=== PATIENT | male | born 1945 | race Caucasian/White ===

== ENCOUNTER → 2017-11-08 06:07 | Outpatient (CLI) | payer MEDICARE, BC, SELFPAY ==
[2017-11-08 09:50] LABS: Abs Immature Grans 0.02 k/cumm (0.0-0.09); Absolute Basophil Count 0.02 k/cumm (0.0-0.2); Absolute Eosinophil Count 0.35 k/cumm (0.0-0.7); Absolute Monocyte Count 0.76 k/cumm (0.11-0.7); Basophils % 0.3; Eosinophils % 5.7; HCT 42.7 % (40.0-50.0); HGB 14.9 g/dL (13.5-17.5); Immature Grans % 0.3; Lymphocytes % 21.1; Mean Corp. HGB Concentration 34.9 g/dL (32.0-36.0); Mean Corpuscular Hemoglobin 31.3 pg (27.0-33.0); Mean Corpuscular Volume 89.7 fL (80-95); Mean Platelet Volume 11.3 fL (8.0-11.0); Monocytes % 12.4; Neutrophils % 60.2; Platelet Count 169 x1000/uL (130-400); RBC 4.76 m/cumm (4.50-6.00); RBC Distribution Width 13.2 % (11.8-14.1); White Blood Cell Count 6.15 k/cumm (4.4-10.8)
[2017-11-08 10:02] LABS: Hemoglobin A1C 7.7 % (4.5-6.2)
[2017-11-08 10:06] LABS: Cholesterol 161 mg/dL (50-200); HDL Cholesterol 36 mg/dL (40-60); LDL CHOLESTEROL 102 mg/dL (<100); Triglyceride 128 mg/dL (30-150)
== END ==
PROVIDERS: PCP Internal Medicine; Visit Provider Internal Medicine
DX: D64.9 Anemia, unspecified (principal); R73.09 Other abnormal glucose; E78.5 Hyperlipidemia, unspecified; I10 Essential (primary) hypertension
CPT/HCPCS: 36415; 80061; 83721; 83036; 85025

== ENCOUNTER 2018-04-05 11:54 | Outpatient (CLI) | payer MEDICARE, BC, SELFPAY ==
[2018-04-05 13:32] LABS: Hemoglobin A1C 8.9 % (4.5-6.2)
== END 2018-04-05 12:14 ==
PROVIDERS: PCP Internal Medicine; Visit Provider Internal Medicine
DX: E11.9 Type 2 diabetes mellitus without complications (principal)
CPT/HCPCS: 36415; 83036

== ENCOUNTER 2018-07-14 09:33 | Outpatient (CLI) | payer MEDICARE, BC, SELFPAY ==
[2018-07-14 13:02] LABS: Hemoglobin A1C 6.6 % (4.5-6.2)
== END 2018-07-14 09:53 ==
PROVIDERS: PCP Internal Medicine; Visit Provider Internal Medicine
DX: E11.9 Type 2 diabetes mellitus without complications (principal); R35.1 Nocturia; Z12.5 Encounter for screening for malignant neoplasm of prostate
CPT/HCPCS: 36415; 84153; 83036

== ENCOUNTER 2019-04-06 16:01 | Outpatient (CLI) | payer MEDICARE, BC, SELFPAY ==
[2019-04-06 17:00] LABS: Abs Immature Grans 0.02 k/cumm (0.0-0.09); Absolute Basophil Count 0.02 k/cumm (0.0-0.2); Absolute Eosinophil Count 0.23 k/cumm (0.0-0.7); Absolute Lymphocyte Count 1.33 k/cumm (1.2-3.4); Absolute Monocyte Count 0.81 k/cumm (0.11-0.7); Absolute Neutrophil Count 4.63 k/cumm (1.2-6.7); Basophils % 0.3; Eosinophils % 3.3; Immature Grans % 0.3 %; Lymphocytes % 18.9; Mean Corp. HGB Concentration 34.1 g/dL (32.0-36.0); Mean Corpuscular Hemoglobin 30.5 pg (27.0-33.0); Mean Corpuscular Volume 89.4 fL (80-95); Mean Platelet Volume 12.4 fL (8.0-11.0); Monocytes % 11.5; Neutrophils % 65.7; Platelet Count 165 x1000/uL (130-400); RBC 4.92 m/cumm (4.50-6.00); RBC Distribution Width 13.4 % (11.8-14.1); White Blood Cell Count 7.04 k/cumm (4.4-10.8)
[2019-04-06 17:05] LABS: ALT 35 U/L (16-63); AST 23 U/L (15-37); Albumin 4.4 g/dL (3.4-5.0); Alkaline Phosphatase 76 U/L (46-116); Anion Gap 7.6 mmol/L (3-11); BUN 21 mg/dL (7-18); Bilirubin, Total 0.7 mg/dL (0.2-1.0); CO2 33.4 mmol/L (21.0-32.0); CREATININE 1.04 mg/dL (0.70-1.30); Calcium 9.4 mg/dL (8.5-10.1); Chloride 103 mmol/L (98-107); Glucose 101 mg/dL (74-106); Potassium 4.4 mmol/L (3.5-5.1); Sodium 144 mmol/L (136-145); Total Protein 7.3 g/dL (6.4-8.2)
== END 2019-04-06 16:21 ==
PROVIDERS: PCP Internal Medicine; Visit Provider Internal Medicine
DX: E11.65 Type 2 diabetes mellitus with hyperglycemia (principal); I10 Essential (primary) hypertension; R50.9 Fever, unspecified
CPT/HCPCS: 36415; 80053; 83036; 85025

== ENCOUNTER 2020-05-21 02:54 | Outpatient (CLI) | payer MEDICARE, BC, SELFPAY ==
[2020-05-21 12:38] LABS: Calculated LDL 118 mg/dL (<100); Cholesterol 207 mg/dL (<200); HDL Cholesterol 37 mg/dL (40-60); Potassium 4.4 mmol/L (3.5-5.1); Triglyceride 260 mg/dL (<150)
[2020-05-21 12:53] LABS: Hemoglobin A1C 7.1 % (<5.7)
== END 2020-05-21 02:55 | disposition home or self-care (01) ==
LOC: LOS 02:54
PROVIDERS: PCP Nurse Practitioner; Visit Provider Nurse Practitioner
DX: E11.65 Type 2 diabetes mellitus with hyperglycemia (principal); I10 Essential (primary) hypertension
CPT/HCPCS: 36415; 80061; 82565; 83036; 84132

== ENCOUNTER 2021-05-22 01:57 | Outpatient (CLI) | payer MEDICARE, BC, SELFPAY | END 2021-05-22 01:58 | disposition home or self-care (01) | LOC: LBO 01:57 | PROVIDERS: PCP Nurse Practitioner; Visit Provider Nurse Practitioner ==

== ENCOUNTER 2021-12-25 03:28 | Outpatient (CLI) | payer MEDICARE, BC, SELFPAY ==
[2021-12-25 14:27] LABS: Hemoglobin A1C 9.5 % (<5.7)
[2021-12-25 14:45] LABS: BUN 21 mg/dL (7-18); CREATININE 1.2 mg/dL (0.70-1.30); Calcium 9.2 mg/dL (8.5-10.1); Calculated LDL 79 mg/dL (<100); Chloride 101 mmol/L (98-107); Cholesterol 145 mg/dL (<200); Estimated GFR 63.46 (mL/min/1.73m2); Glucose 156 mg/dL (74-106); HDL Cholesterol 45 mg/dL (40-60); Potassium 3.6 mmol/L (3.5-5.1); Sodium 139 mmol/L (136-145); Triglyceride 109 mg/dL (<150)
== END 2021-12-25 03:29 | disposition home or self-care (01) ==
LOC: LBO 03:28
PROVIDERS: PCP Nurse Practitioner; Visit Provider Nurse Practitioner
DX: I10 Essential (primary) hypertension (principal); E11.9 Type 2 diabetes mellitus without complications; E78.5 Hyperlipidemia, unspecified
CPT/HCPCS: 36415; 80048; 80061; 83036

== ENCOUNTER 2022-06-02 00:46 | Outpatient (CLI) | payer MEDICARE, BC, SELFPAY ==
--- NOTE | 2022-06-02 07:34 | DI.NM_ITS ---
APPROVED REPORT Day 1 2
== END 2022-06-02 01:06 ==
PROVIDERS: PCP Nurse Practitioner Family; Visit Provider Nurse Practitioner Family
DX: I10 Essential (primary) hypertension (principal)
CPT/HCPCS: 93016; 93018

== ENCOUNTER 2022-06-05 01:47 | Outpatient (CLI) | payer MEDICARE, BC, SELFPAY ==
--- NOTE | 2022-06-05 11:00 | DI.NM_ITS ---
APPROVED REPORT Exam: Pharmacologic Patient Location: Out-Patient Room/Bed: Stress Nurse: Sharon Avila RN Ordering Provider:ELPIDIO URIBE, Contact Number: [phone] BMI: 28.58 Baseline Rhythm: Sinus Rhythm w/ RBBB and LPFB, PVCs Indications: CDL, HTN, atherosclerosis, h/o bypass Medical History Medical History: Hypertension, hyperlipidemia, diabetes, ventral hernia, white coat syndrome, smoker (former), CVD Cardiac Medications: Metoprolol succinate, metformin, enalapril maleate, enalapril HTZ, atorvastatin, aspirin Allergies: NKA Cardiac Risk Factors: Hypertension, hyperlipidemia, diabetes, smoker (former), CVD, family hx Previous Cardiac Procedures: CABG x3 2006 Pretest Chest Pain Characteristics: None Exercise History: Indeterminate Physical Disabilities: None Lung Sounds: Clear to auscultation Heart Sounds: Regular Stress Test Details Test: Pharmacologic stress testing performed using 0.4 mg of regadenoson per 5 mL given IV over 10 s econds. Reason for pharmacologic stress test: Hypertensive at rest. Nuclear Acquisition: Stress Tc-99m/Stress Tc-99m 2 days Rest Isotope: Tc-99m Sestamibi. Dose: 10 Date: 06/02/2022 Injection Time: 0900 Stress Isotope: Tc-99m Sestamibi. Dose: 30.6 Date: 06/05/2022 Injection Time: 1115 HR Resting HR Supine: 52 bpm Max Heart Rate (APMHR): 145.393901 bpm Target HR (85% APMHR): 123.690488 bpm Max HR Achieved: 75 bpm % of APMHR: 51.72 Recovery HR: 65 bpm BP Resting BP Supine: 202/80 mmHg Max BP: 202/80 mmHg Recovery BP: 148/70 mmHg Comment: Hypertensive at baseline ECG Resting ECG: Sinus Rhythm, RBBB and LPFB Ectopy: Occasional PVCs Stress ECG: Sinus Rhythm, RBBB and LPFB ST Change: Nondiagnostic low heart rate Arrhythmia: Occasional PVCs Recovery ECG: Sinus Rhythm, RBBB and LPFB Recovery ST Change: Nondiagnostic low heart rate Recovery Arrhythmia: Occasional PVCs Clinical Rate Pressure Product: [id number] Stress ECG Conclusion 1. Resting electrocardiogram showed right bundle sean block, right axis deviation 2. Patient was hypertensive at baseline 3. Patient underwent testing using pharmacologic stress with regadenoson 4. Peak heart rate achieved was 52% of maximal for age 5. The electrocardiographic portion of the test was nondiagnostic due to inadequate heart rate 6. See MPI report Stress Test Summary STAGE HR BP SpO2 Symptoms NOTES Supine 52 202/80 96% 1 min post Lexiscan injection 59 186/74 97% Mild SOB SOB resovled quickly 3 min post Lexiscan injection 67 160/68 96% 6 min post Lexiscan injection 65 148/70 96% Due to resting hypertensive blood pressure consulted w/ MD Reed and recommended we proceed with pharm acologic stress test. Pt tolerated Regadenoson administration well. MPI Conclusion Technically suboptimal study EF is 39% with global hypokinesis Cannot exclude some degree of anterior ischemia Radiologist Interpretation Radiologist agrees with Accounts Receivable Assistant's Interpretation. Radiologist Interpretation by: Arabella Card MD Interpretation Date/Time: 06/10/2022 16:27:33
[2022-06-05] MEDS: Regadenoson 0.4 MG/5 ML SYR IVP (11:32)
== END 2022-06-05 02:07 ==
LOC: DI 01:47
PROVIDERS: PCP Nurse Practitioner Family; Visit Provider Nurse Practitioner Family
DX: I25.10 Atherosclerotic heart disease of native coronary artery without angina pectoris (principal)
CPT/HCPCS: 78452; 93016; 93018; 93017; J2785

== ENCOUNTER 2022-06-09 02:01 | Outpatient (CLI) | payer MEDICARE, BC, SELFPAY ==
--- NOTE | 2022-06-09 08:00 | DI.US_ITS ---
APPROVED REPORT EXAM: Comprehensive 2D, Doppler, and color-flow Echocardiogram Other Information Study Quality: Adequate Conclusion Normal left ventricular wall thickness and chamber size. Estimated ejection fraction is 50 to 55%. There are no segmental wall motion abnormalities Normal right ventricular size and systolic function Both atria are normal in size There is no structural or hemodynamically significant valvular disease Wall motion Left Ventricle The left ventricle is normal size. The overall left ventricular systolic function appears borderline There is normal left ventricular wall thickness. There is normal LV segmental wall motion. There is n o ventricular septal defect visualized. LVEF is 50-55%. Right Ventricle The right ventricle is normal size. The right ventricular systolic function is normal. Atria The left atrium size is normal. The right atrium size is normal. The interatrial septum is intact wit h no evidence for an atrial septal defect. Aortic Valve The aortic valve is normal in structure. Aortic valve is trileaflet. There is no aortic valvular sten osis. No aortic regurgitation is present. Mitral Valve The mitral valve is normal in structure. No evidence of mitral valve stenosis. Mild mitral regurgita tion. Tricuspid Valve The tricuspid valve is normal in structure. There is no tricuspid valve stenosis. Trace tricuspid reg urgitation. Unable to assess PA pressure. Pulmonic Valve The pulmonary valve is normal in structure. There is no pulmonic valvular stenosis. Trace to mild pul rita regurgitation. Great Vessels The aortic root is normal in size. Ascending aorta is not well visualized. Aortic arch is not well vi sualized. IVC is normal in size and collapses >50% with inspiration. Pericardium There is no pericardial effusion. 2D Dimensions IVSD d PLAX 1.20 cm M: 0.6-1.2 LV Vol A2C d MOD 148.3 mL LVPW d PLAX 1.25 cm M: 0.6 - 1.2 LV Vol A4C d MOD 128.4 mL LVID d PLAX 4.75 cm M: 4.2 - 5.8 LA vol/ BSA A2C s A-L 37.3 mL/m2 LVDs 3.45 cm M: 2.5 - 4.0 LA vol/ BSA A4C s A-L 27.6 mL/m2 Ao Root d 2.97 cm M: 3.1 - 3.7 LA Vol/ BSA Biplane s A-L 33.0 mL/m2 RA Area A4C 14.11 cm2 LA Area A4C s MOD 18.76 cm2 RA Vol/ BSA A4C s A-L 20.6 mL/m2 LA Area A2C s MOD 21.16 cm2 LV EF Teichholz 52.7 % LV EF A4C MOD 49.2 % LVEF (Gray's) 52.85 % M: 52 - 72 LV EF A2C MOD 55.3 % LV Volume 105.94 mL M: 62 - 150 LV EF Biplane MOD 52.8 % LV Volume Index 53.23 mL/m2 M: 34 - 74 SV 74.53 mL LV Vol Biplane MOD 141.0 mL SV Index 37.44 mL/m2 FS 27.05 % M-Mode TAPSE 1.79 cm (M/F) >1.7 LV Diastology MV E' medial 0.035 (>0.07 m/s) E/A Ratio 0.6 LV E/e MED 11.00 (<14) MV E Vmax 0.39 (0.4-1.3 m/s) MV E' lateral 0.051 (>0.1 m/s) MV A Vmax 0.60 (0.4-1.3 m/s) LV E/e LAT 7.60 (<14) MV E/A Ratio 0.64 MV E/E' medial 11.03 MV E/E' lateral 7.62 Aortic Valve LVOT Area 3.42 cm2 AoV Area Vmax 3.11 cm2 LVOT Vmax 1.07 m/s AoV Area/ BSA (Vmax) 1.56 cm2/m2 LVOT Mean Segundo. 0.67 m/s LELIA Mean Segundo. 2.97 cm2 LVOT Peak Grad 4.6 mmHg LELIA Mean Segundo. Index 1.49 cm2/m2 LVOT Mean Grad 2.1 mmHg LVOT VTI 0.234 m LVOT Diam s 2.05 cm AoV Vmax 1.18 m/s Velocity Ratio 0.91 AoV Mean Segundo. 0.77 m/s AoV Peak Grad 5.5 mmHg LVOT SV 80.22 mL AoV Mean Grad 2.8 mmHg AoV VTI 0.248 m AoV Area VTI 3.23 cm2 AoV Area/ BSA (VTI) 1.62 cm/m2 Mitral Valve MV DT 464 (160-240 msec) MV PHT 135 msec MV Area PHT 1.63 cm2 MV VTI 0.274 m MV Area VTI 2.93 (4.0-6.0 cm2) Pulmonary Valve PV Vmax 1.04 (0.5-1.5 m/s) RVOT Peak Gr. 1.36 mmHg PV Peak Grad 4.4 mmHg RVOT Mean Gr. 0.65 mmHg PV Mean Grad 2.2 mmHg RVOT VTI 0.137 m PV VTI 0.210 m RVOT Vmax 0.58 m/s
== END 2022-06-09 02:21 ==
LOC: DI 02:01
PROVIDERS: PCP Nurse Practitioner Family; Visit Provider Nurse Practitioner Family
DX: I10 Essential (primary) hypertension (principal); I25.10 Atherosclerotic heart disease of native coronary artery without angina pectoris; Z95.1 Presence of aortocoronary bypass graft
CPT/HCPCS: 93306

== ENCOUNTER 2022-08-20 11:21 | Outpatient (CLI) | payer MEDICARE, BC, SELFPAY ==
[2022-08-20 09:21] LABS: Hemoglobin A1C 7.4 % (<5.7)
== END 2022-08-20 11:22 | disposition home or self-care (01) ==
PROVIDERS: PCP Nurse Practitioner Family; Visit Provider Nurse Practitioner Family
DX: E11.9 Type 2 diabetes mellitus without complications (principal)
CPT/HCPCS: 36415; 83036

== ENCOUNTER 2023-05-25 12:18 | Outpatient (CLI) | payer MEDICARE, BC, SELFPAY ==
[2023-05-25 11:33] LABS: HCT 40.9 % (40.0-50.0); HGB 14.1 g/dL (13.5-17.5); MCH 30.9 pg (27.0-33.0); MCHC 34.5 % (32.0-36.0); MCV 90 fL (80-95); MPV 11.3 fL (8.0-11.0); Platelet Count 174 10^3/uL (130-400); RBC 4.57 10^6/uL (4.36-5.78); RDW 12.9 % (11.8-14.1); RDW-SD 42.3 fL; WBC 7.62 10^3/uL (4.4-10.8)
[2023-05-25 12:05] LABS: ALT 31 U/L (16-63); AST 22 U/L (15-37); Albumin 4.1 g/dL (3.4-5.0); Alkaline Phosphatase 112 U/L (46-116); Anion Gap 7.9 mmol/L (3-11); BUN 22 mg/dL (7-18); Bilirubin, Total 0.7 mg/dL (0.2-1.0); CO2 32.1 mmol/L (21.0-32.0); CREATININE 1.1 mg/dL (0.70-1.30); Calcium 10.1 mg/dL (8.5-10.1); Calculated LDL 61 mg/dL (<100); Chloride 103 mmol/L (98-107); Cholesterol 116 mg/dL (<200); Estimated GFR 69.57 (mL/min/1.73m2); Glucose 178 mg/dL (74-106); HDL Cholesterol 38 mg/dL (40-60); Potassium 4.7 mmol/L (3.5-5.1); Sodium 143 mmol/L (136-145); Total Protein 7.4 g/dL (6.4-8.2); Triglyceride 85 mg/dL (<150)
== END 2023-05-25 12:19 | disposition home or self-care (01) ==
LOC: LBO 12:19
PROVIDERS: PCP Nurse Practitioner Family; Visit Provider Nurse Practitioner Family
DX: I10 Essential (primary) hypertension (principal); E11.9 Type 2 diabetes mellitus without complications; E78.5 Hyperlipidemia, unspecified
CPT/HCPCS: 36415; 80053; 80061; 85027

== ENCOUNTER 2023-08-25 12:47 | Outpatient (REF) | payer MEDICARE, BC, SELFPAY ==
[2023-08-25 14:20] LABS: COMMENT (LAB VIEW ONLY) 122.86 mg/dL
[2023-08-25 14:27] LABS: Microalb ug/mg Crea 225.4 ug/mg Cr
== END 2023-08-25 12:48 | disposition home or self-care (01) ==
LOC: LBN 12:47
PROVIDERS: PCP Nurse Practitioner Family; Visit Provider Nurse Practitioner Family
DX: E11.9 Type 2 diabetes mellitus without complications (principal)
CPT/HCPCS: 82043; 82570

== ENCOUNTER 2023-11-30 13:29 | Outpatient (CLI) | payer MEDICARE, BC, SELFPAY ==
--- NOTE | 2023-11-30 | DI.RAD_ITS ---
Exam(s) XR FOOT LT COMPLETE EXAM: XR FOOT LT COMPLETE CLINICAL HISTORY: pain in left foot icd-10. TECHNIQUE: 2D digital imaging was performed. COMPARISON: No exams were available for comparison FINDINGS: 3 views No evidence of acute fracture or diastasis of the Lisfranc joint. Great toe metatarsophalangeal join t appears unremarkable. No pes planus. There is soft tissue swelling lateral to the 5th metatarsal head. There does not appear to be an obvious skin ulcer at this level nor radiopaque foreign body an d the cortex of the head of the 5th metatarsal is intact, as is the proximal phalanx. Incidentally noted is a sclerotic benign-appearing non expansile bone lesion in the mid aspect of the great toe metatarsal. Small benign exostosis is noted off the medial aspect of the great toe distal phalanx, this being a common benign finding. Sesamoid bone is noted in the distal tibialis posterio r tendon adjacent to the navicular tuberosity on the medial aspect of the foot. This is not a fractu re fragment. IMPRESSION: Findings as above but no evidence of fracture. No foreign bodies seen. No evidence of osteomyelitis . There is soft tissue swelling lateral to the head of the 5th metatarsal but no osseous findings. DATA REPOSITORY: RADIATION DOSE DELIVERED:
--- NOTE | 2023-11-30 14:24 | DI.VRAD_ITS ---
PROCEDURE INFORMATION: Exam: XR Left Foot Exam date and time: 11/30/2023 1:40 PM Age: 78 years old Clinical indication: Other: Left foot redness and swelloing HX gout , cellulitis TECHNIQUE: Imaging protocol: Radiologic exam of the left foot. Views: 3 or more views. COMPARISON: No relevant prior studies available. FINDINGS: Bones/joints: No fracture or dislocation. No bone erosion. Normal bone mineralization. Soft tissues: Soft tissue swelling along the lateral aspect of the cyst metatarsophalangeal joint. IMPRESSION: No acute bony findings. If clinical symptoms persist recommend followup film in 7-10 days. Dictated and Authenticated by: Celestina Wu MD. Ordering:YUMIKO LUI MD
== END 2023-11-30 13:49 ==
LOC: DI 13:30
PROVIDERS: PCP Nurse Practitioner Family; Visit Provider Nurse Practitioner Family
DX: M79.672 Pain in left foot (principal)
CPT/HCPCS: 73630

== ENCOUNTER 2023-11-30 18:20 | Outpatient (REF) | payer MEDICARE, BC, SELFPAY ==
[2023-11-30 19:00] LABS: Abs Immature Grans 0.03 10^3/uL (0.0-0.06); Absolute Basophil Count 0.04 10^3/uL (0.0-0.2); Absolute Eosinophil Count 0.27 10^3/uL (0.0-0.7); Absolute Lymphocyte Count 1.19 10^3/uL (1.2-3.4); Absolute Monocyte Count 0.91 10^3/uL (0.1-0.8); Absolute Neutrophil Count 7.42 10^3/uL (1.2-6.7); Basophils % 0.4 %; Eosinophils % 2.7 %; HGB 15.1 g/dL (13.5-17.5); Immature Grans % 0.3 %; Lymphocytes % 12.1 %; MCH 30.8 pg (27.0-33.0); MCHC 33.6 % (32.0-36.0); MCV 92 fL (80-95); Monocytes % 9.2 %; Neutrophils % 75.3 %; Platelet Count 192 10^3/uL (130-400); RDW 12.9 % (11.8-14.1); RDW-SD 43.5 fL; WBC 9.86 10^3/uL (4.4-10.8)
[2023-11-30 19:07] LABS: Uric Acid 6.8 mg/dL (3.5-7.2)
== END 2023-11-30 18:21 | disposition home or self-care (01) ==
LOC: LBN 18:20
PROVIDERS: PCP Nurse Practitioner Family; Visit Provider Nurse Practitioner Family
DX: M79.672 Pain in left foot (principal)
CPT/HCPCS: 84550; 85025; 85379

== ENCOUNTER 2023-12-03 09:47 | Outpatient (REF) | payer MEDICARE, BC, SELFPAY ==
[2023-12-03 14:21] LABS: D-Dimer 958 ng/mlFEU (<500)
== END 2023-12-03 09:48 | disposition home or self-care (01) ==
LOC: LBN 09:47
PROVIDERS: PCP Nurse Practitioner Family; Visit Provider Physician Assistant Medical
DX: M79.672 Pain in left foot (principal)
CPT/HCPCS: 85379

== ENCOUNTER 2023-12-04 00:44 | Outpatient (CLI) | payer MEDICARE, BC, SELFPAY ==
--- NOTE | 2023-12-04 | DI.US_ITS ---
Exam(s) US LOWER EXTREMITY VENOUS LT EXAM: US LOWER EXTREMITY VENOUS LT CLINICAL HISTORY: D-DIMER ABOVE REFERENCE RANGE, R79.1 TECHNIQUE: Left lower extremity venous ultrasound performed using grayscale, color-flow, and spectra l Doppler analysis. COMPARISON: No exams were available for comparison FINDINGS: The left common femoral, femoral and popliteal veins demonstrate normal compressibility, augmentation , and color Doppler. The posterior tibial veins are patent. The saphenofemoral junction is unremarka ble. There is no evidence of a Darden cyst. The soft tissues are unremarkable. IMPRESSION: No evidence of a left lower extremity DVT. DATA REPOSITORY:
== END 2023-12-04 01:04 ==
LOC: DI 00:44
PROVIDERS: PCP Nurse Practitioner Family; Visit Provider Physician Assistant Medical
DX: R79.1 Abnormal coagulation profile (principal)
CPT/HCPCS: 93971

== ENCOUNTER 2024-06-14 15:47 | Outpatient (REF) | payer MEDICARE, BC, SELFPAY ==
[2024-06-14 12:58] LABS: HGB 14.8 g/dL (13.5-17.5); MCH 31.4 pg (27.0-33.0); MCHC 35.2 % (32.0-36.0); MCV 89 fL (80-95); MPV 12.5 fL (8.0-11.0); Platelet Count 161 10^3/uL (130-400); RBC 4.71 10^6/uL (4.36-5.78); RDW 12.9 % (11.8-14.1); RDW-SD 42.5 fL
[2024-06-14 13:07] LABS: ALT 40 U/L (16-63); AST 29 U/L (15-37); Alkaline Phosphatase 88 U/L (46-116); Anion Gap 7.1 mmol/L (3-11); BUN 15 mg/dL (7-18); CO2 32.9 mmol/L (21.0-32.0); Calcium 9.6 mg/dL (8.5-10.1); Calculated LDL 85 mg/dL (<100); Chloride 103 mmol/L (98-107); Cholesterol 150 mg/dL (<200); Estimated GFR 77.52 (mL/min/1.73m2); Glucose 204 mg/dL (74-106); HDL Cholesterol 44 mg/dL (>or=40); Potassium 4.3 mmol/L (3.5-5.1); Sodium 143 mmol/L (136-145); Total Protein 6.8 g/dL (6.4-8.2); Triglyceride 109 mg/dL (<150)
== END 2024-06-14 15:48 | disposition home or self-care (01) ==
LOC: LBN 15:47
PROVIDERS: PCP Nurse Practitioner Family; Visit Provider Nurse Practitioner Family
DX: I10 Essential (primary) hypertension (principal); Z00.00 Encounter for general adult medical examination without abnormal findings; E78.5 Hyperlipidemia, unspecified; E11.9 Type 2 diabetes mellitus without complications
CPT/HCPCS: 80053; 80061; 85027

== ENCOUNTER 2025-02-20 04:06 | Outpatient (CLI) | payer MEDICARE, BC, SELFPAY ==
[2025-02-20 11:27] LABS: Abs Immature Grans 0.02 10^3/uL (0.0-0.06); HCT 39.9 % (40.0-50.0); HGB 13.6 g/dL (13.5-17.5); Immature Grans % 0.3 %; MCH 30.8 pg (27.0-33.0); MCHC 34.1 % (32.0-36.0); MCV 90 fL (80-95); MPV 11.6 fL (8.0-11.0); Platelet Count 185 10^3/uL (130-400); RBC 4.42 10^6/uL (4.36-5.78); RDW 12.8 % (11.8-14.1); RDW-SD 41.8 fL; WBC 6.87 10^3/uL (4.4-10.8)
[2025-02-20 11:36] LABS: C & S Indicated? No; RBC 0-2 HPF (0-2); WBC 0-2 HPF (0-5)
[2025-02-20 12:07] LABS: ALT 40 U/L (10-49); AST 30 U/L (<34); Albumin 4.3 g/dL (3.4-5.0); Alkaline Phosphatase 90 U/L (46-116); Anion Gap 9.1 mmol/L (3-11); BUN 25 mg/dL (9-23); Bilirubin, Total 0.60 mg/dL (0.2-1.2); CO2 29.9 mmol/L (20.0-31.0); Calcium 9.0 mg/dL (8.3-10.6); Chloride 106 mmol/L (98-107); Glucose 114 mg/dL (74-106); Potassium 3.9 mmol/L (3.5-5.1); Sodium 145 mmol/L (136-145); Total Protein 6.5 g/dL (5.7-8.2)
== END 2025-02-20 04:07 | disposition home or self-care (01) ==
LOC: LBO 04:07
PROVIDERS: PCP Nurse Practitioner Family; Visit Provider Physician Assistant Medical
DX: R10.9 Unspecified abdominal pain (principal); G89.29 Other chronic pain
CPT/HCPCS: 36415; 80053; 81015; 85025

== ENCOUNTER → 2025-03-07 00:33 | Outpatient (CLI) | payer MEDICARE, BC, SELFPAY ==
--- NOTE | 2025-03-07 | DI.US_ITS ---
Exam(s) US ABDOMEN EXAM: US ABDOMEN CLINICAL HISTORY: CHRONIC ABD PAIN, R10.9, G89.29 CHRONIC PAIN TECHNIQUE: Ultrasound abdomen performed using standard protocol. COMPARISON: No exams were available for comparison FINDINGS: LIVER: Normal size and echogenicity. No focal liver lesions are seen. GALLBLADDER: No evidence of cholelithiasis. No evidence of wall thickening. No pericholecystic fluid identified. DILL'S SIGN: Negative. BILIARY SYSTEM: No intrahepatic or extrahepatic biliary ductal dilation. KIDNEYS: Kidneys are symmetric in size. No evidence of renal calculi. No evidence of hydronephrosis. No renal mass or cyst identified. PANCREAS: Normal where visualized. SPLEEN: Not enlarged. ABDOMINAL AORTA AND IVC: Mural calcification. No significant mural thrombus. Distal aneurysm measuring 3.8 x 4.2 centimeter diameter. No evidence of dissection or leak. ASCITES: None seen. IMPRESSION: Distal abdominal aortic aneurysm measuring 3.8 x 4.2 cm, otherwise normal sonographic appearance of the upper abdomen. DATA REPOSITORY:
== END ==
LOC: DI 00:33
PROVIDERS: PCP Nurse Practitioner Family; Visit Provider Physician Assistant Medical
DX: I71.40 Abdominal aortic aneurysm, without rupture, unspecified (principal)
CPT/HCPCS: 76700